=== PATIENT | female | born 1985 | race Caucasian/White ===

== ENCOUNTER 2020-12-31 08:13 | Inpatient (IN) | payer OTHER ==
[~2020-12-31] VITALS: Ht 177.8 cm; Wt 106.1 kg
[~2020-12-31 08:13] MED LIST: COLACE 100MG C100 MG PO; IBUPROFEN600 MG PO; PRENATAL TABLE1 EACH PO; SYNTHROID25 MCG PO
[2020-12-31 08:56] LABS: HEMOGLOBIN 12.8 gm/dl (12.3-15.3); RED BLOOD COUNT 4.1 M/UL (4.00-5.10); WHITE BLOOD COUNT 11.4 K/UL (4.5-11.0)
[2020-12-31] MEDS ORDERED: IBUPROFEN600 MG PO (10:29)
[2020-12-31] MEDS ORDERED: DOCUSATE SODIU250 MG PO (10:29)
[2020-12-31] MEDS ORDERED: FERROUS SULFAT325 MG PO (11:34)
[2021-01-01 06:17] LABS: HEMOGLOBIN 12.7 gm/dl (12.3-15.3)
[2021-01-02] MEDS ORDERED: IBUPROFEN600 MG PO (08:53)
[2021-01-02] MEDS ORDERED: DOCUSATE SODIU100 MG PO (08:53)
== END 2021-01-02 17:03 | disposition home or self-care (01) | DRG 806 ==
LOC: GENOP 08:13 → OB 08:42
PROVIDERS: ADMIT Obstetrics & Gynecology
PROC: 10E0XZZ Delivery of Products of Conception, External Approach (ICD-10-PCS; principal; 2020-12-31)
PROC: 10907ZC Drainage of Amniotic Fluid, Therapeutic from Products of Conception, Via Natural or Artificial Opening (ICD-10-PCS; 2020-12-31)
DX: O99.284 Endocrine, nutritional and metabolic diseases complicating childbirth (principal); O98.42 Viral hepatitis complicating childbirth; Z37.0 Single live birth; E03.9 Hypothyroidism, unspecified; Z3A.39 39 weeks gestation of pregnancy; Z28.09 Immunization not carried out because of other contraindication; Z20.822 Contact with and (suspected) exposure to COVID-19; O99.824 Streptococcus B carrier state complicating childbirth; O99.344 Other mental disorders complicating childbirth; F32.9 Major depressive disorder, single episode, unspecified; B19.20 Unspecified viral hepatitis C without hepatic coma; O99.324 Drug use complicating childbirth
CPT/HCPCS: 36415; 80307; 81001; 82800; 85014; 85018; 85025; J2210; J2405; J2590; J3010; J7120; U0002